=== PATIENT | female | born 1995 | race Caucasian/White ===

== ENCOUNTER 2017-02-01 20:40 | Emergency (ER) | payer SELFPAY ==
[~2017-02-01 20:40] MED LIST: ACID CONTROL20 MG PO; ALBUTEROL17 G1; ALBUTEROL17 G1 IH; ALBUTEROL17 G1 INH; ALBUTEROL17 GM; ALBUTEROL17 GM INH; AMOXICILLIN PO; AMOXIL500 M1 PO; AZO; BACTRIM DS TABL1 TA1; BACTRIM DS TABL1 TA1 PO; BACTRIM DS TABL1 TA2 PO; BACTRIM DS TABL1 TAB PO; BENADRYL25 M1 PO; BIRTH CONTROL PILL PO; CIPRO; DEPO SHOT; DICLOFENAC PO; DILANTIN KAPSE100 MG DOB; HYDROCODON-ACE1 EAC7 PO; HYDROCODONE-APA1 T43 PO; IBUPROFEN PO; IBUPROFEN100 M1; IBUPROFEN600 MG; IBUPROFEN800 MG PO; Ibuprofen; KEFLEX PO; KEFLEX500 M1 PO; KEFLEX500 MG; KEPPRA500 M1 DOB; LEVAQUIN PO; LORTAB 7.5-5001 TAB; MAGIC MOUTHWASH PO; MEDROL DOSEPAK4 MG; MEDROL DOSEPAK4 MG PO; MEDROL4 MG/DOSE-; MEDROL4 MG/DOSE- PO; NAPROSYN500 MG; NO MEDICATIONS; NORFLEX100 M1 PO; ORUDIS75 M1 PO; PERCOCET PO; PHENERGAN DM1 ML PO; PHENERGAN25 MG; PHENERGAN25 MG PO; PREDNISONE PO; PRENATAL VITAMI1 TA3 PO; PRILOSEC20 MG PO; PYRIDIUM PO; SEROQUEL50 M1 PO; SUDAFED PO; TALWIN NX50 MG TAB PO; TYLENOL #3 PO; VEETIDS 500500 M1 PO; ZITHROMAX PO; ZOFRANODT PO
[2017-05-15] MEDS ORDERED: AUGMENTIN (22:55)
[2017-05-15] MEDS ORDERED: MEDROL (22:55)
[2017-05-15] MEDS ORDERED: ALBUTEROL17 GM (22:55)
== END 2017-02-01 21:59 | disposition home or self-care (01) ==
LOC: SED 20:40
DX: L02.612 Cutaneous abscess of left foot (principal); J02.0 Streptococcal pharyngitis; Z87.442 Personal history of urinary calculi; F31.9 Bipolar disorder, unspecified; J45.909 Unspecified asthma, uncomplicated; Z90.49 Acquired absence of other specified parts of digestive tract; F17.210 Nicotine dependence, cigarettes, uncomplicated; Z88.5 Allergy status to narcotic agent; Z88.8 Allergy status to other drugs, medicaments and biological substances; Z98.890 Other specified postprocedural states
CPT/HCPCS: 10060; 84703; 87880; 99283

== ENCOUNTER 2017-02-18 21:52 | Emergency (ER) | payer SELFPAY ==
--- NOTE | ~2017-02-18 | CR169 ---
[facility]. [facility] A Service of [facility] & [facility] RADIOLOGY TEXT RESULTS PATIENT: JUDY KAYE LOCATION: SED : [birth year] UNIT #: [id number] AGE: [address]: Halle Flores SEX: F ORDER DR: [id number] [place] [id number] E MR#: [id number] Acc #: [id number] NAME: JUDY KAYE. : 1995 SEX: F STUDY DATE/TIME: 02/18/2017 23:17 UNIT: SED ROOM: STUDY DESCRIPTION: CR Knee 2 Views Lt Attending Physician: Halle Flores Pa-C Ordering Physician: Halle Flores Pa-C Primary Care Physician: Primary Care Physician No MEDICAL IMAGING REPORT This report is preliminary unless electronic signature is present. EXAM Left knee series INDICATION Left leg burning and knee pain after a fall this morning. PROCEDURE 2 views of the left knee. COMPARISON None FINDINGS No fracture, dislocation or joint effusion. IMPRESSION No acute findings. Dictated by... Ulises Pabon M.D. THIS IS AN ELECTRONICALLY VERIFIED REPORT Ulises Pabon M.D. at 02/19/2017 10:28 PM Valentina TD: 02/19/2017 08:09 JOB #: [id number] MEDICAL IMAGING REPORT Page 1 of 1
--- NOTE | ~2017-02-18 | CR20 ---
[facility]. [facility] A Service of [facility] & [facility] RADIOLOGY TEXT RESULTS PATIENT: JUDY KAYE LOCATION: SED : [birth year] UNIT #: [id number] AGE: [address]: Halle Flores SEX: F ORDER DR: [id number] [place] [id number] E MR#: [id number] Acc #: [id number] NAME: JUDY KAYE. : 1995 SEX: F STUDY DATE/TIME: 02/18/2017 23:17 UNIT: SED ROOM: STUDY DESCRIPTION: CR Ankle Min 3 Views Lt Attending Physician: Halle Flores Pa-C Ordering Physician: Halle Flores Pa-C Primary Care Physician: No Primary Care Physician MEDICAL IMAGING REPORT This report is preliminary unless electronic signature is present. EXAM Left ankle series. INDICATIONS Left ankle pain after a fall today. PROCEDURE Three views left ankle. COMPARISON None. FINDINGS No acute fracture or dislocation. IMPRESSION No acute findings. Dictated by... Ulises Pabon M.D. THIS IS AN ELECTRONICALLY VERIFIED REPORT Ulises Pabon M.D. at 02/19/2017 10:28 PM WILLIAM/mark TD: 02/19/2017 08:08 JOB #: [id number] MEDICAL IMAGING REPORT Page 1 of 1
[2017-02-18 23:08] LABS: URINE SOURCE CLEAN CATCH
[2017-02-18 23:10] LABS: URINE APPEARANCE HAZY; URINE BILIRUBIN NEG (NEG); URINE BLOOD 2+ (NEG); URINE COLOR YELLOW; URINE GLUCOSE NEG (NORM); URINE KETONE NEG (NEG); URINE LEUKOCYTE ESTERASE 2+ (NEG); URINE NITRATE POS (NEG); URINE PH 5.5 (5-8); URINE PROTEIN TRACE (NEG); URINE SPECIFIC GRAVITY 1.015 (1.003-1.035); URINE UROBILINOGEN 0.2 MG/DL (NORM)
[2017-02-18 23:12] LABS: MICRO INDICATED? YES
[2017-02-18 23:14] LABS: CULTURE INDICATED? YES; URINE BACTERIA 2+ (NEG); URINE MUCUS PRESENT; URINE RBC 0-2 /[HPF] (0-2); URINE SQUAMOUS EPITHELIAL CELL OCCAS /[HPF]
[2017-05-15] MEDS ORDERED: ALBUTEROL17 GM (22:55)
[2017-05-15] MEDS ORDERED: MEDROL (22:55)
[2017-05-15] MEDS ORDERED: AUGMENTIN (22:55)
== END 2017-02-19 00:16 | disposition home or self-care (01) ==
LOC: SED 21:52
PROVIDERS: Physician Assistant Medical
DX: S99.912A Unspecified injury of left ankle, initial encounter (principal); N39.0 Urinary tract infection, site not specified; F17.210 Nicotine dependence, cigarettes, uncomplicated; W01.0XXA Fall on same level from slipping, tripping and stumbling without subsequent striking against object, initial encounter; Y92.009 Unspecified place in unspecified non-institutional (private) residence as the place of occurrence of the external cause
CPT/HCPCS: 29405; 73560; 73610; 81003; 84703; 87086; 87088; 87186; 99283

== ENCOUNTER 2017-03-05 23:37 | Emergency (ER) | payer OTHER ==
[2017-03-06 01:35] LABS: URINE SOURCE CLEAN CATCH
[2017-03-06 01:37] LABS: URINE APPEARANCE CLEAR; URINE BILIRUBIN NEG (NEG); URINE BLOOD NEG (NEG); URINE COLOR YELLOW; URINE GLUCOSE NEG (NORM); URINE KETONE NEG (NEG); URINE LEUKOCYTE ESTERASE 1+ (NEG); URINE NITRATE POS (NEG); URINE PH 5.5 (5-8); URINE PROTEIN NEG (NEG); URINE SPECIFIC GRAVITY 1.025 (1.003-1.035); URINE UROBILINOGEN 0.2 MG/DL (NORM)
[2017-03-06 01:40] LABS: MICRO INDICATED? YES
[2017-03-06 01:41] LABS: CULTURE INDICATED? YES; URINE BACTERIA 1+ (NEG); URINE SQUAMOUS EPITHELIAL CELL MODERATE /[HPF]; URINE TRANSITIONAL EPI CELLS FEW /[HPF]; URINE WBC 50-100 /[HPF] (0-5)
[2017-05-15] MEDS ORDERED: ALBUTEROL17 GM (22:55)
[2017-05-15] MEDS ORDERED: MEDROL (22:55)
[2017-05-15] MEDS ORDERED: AUGMENTIN (22:55)
== END 2017-03-06 03:03 | disposition home or self-care (01) ==
LOC: SED 23:37
PROVIDERS: Emergency Medicine
DX: L30.9 Dermatitis, unspecified (principal); J40 Bronchitis, not specified as acute or chronic; N39.0 Urinary tract infection, site not specified; Z87.442 Personal history of urinary calculi; F31.9 Bipolar disorder, unspecified; F17.200 Nicotine dependence, unspecified, uncomplicated; Z88.5 Allergy status to narcotic agent; Z88.8 Allergy status to other drugs, medicaments and biological substances
CPT/HCPCS: 81003; 84703; 87086; 87088; 87186; 99282